=== PATIENT | female | born 1990 | race Hispanic/Latino ===

== ENCOUNTER 2017-10-31 19:12 | Emergency (ER) | payer OTHER, SELFPAY ==
[2017-10-31] MEDS ORDERED: Ketorolac Tromethamine 30 MG/ML VIAL ONE (21:01)
== END 2017-10-31 21:32 | disposition home or self-care (01) ==
LOC: ERS 19:12
DX: S16.1XXA Strain of muscle, fascia and tendon at neck level, initial encounter (principal); Q61.3 Polycystic kidney, unspecified; V43.52XA Car driver injured in collision with other type car in traffic accident, initial encounter
CPT/HCPCS: 96372; J1885

== ENCOUNTER 2019-01-16 10:07 | Outpatient (CLI) | payer OTHER ==
--- NOTE | 2019-01-16 10:59 | ULT ---
Renal sonogram HISTORY: Chronic renal disease. FINDINGS: The right kidney measures up to 12.9 cm length. Extensive widespread large cortical cysts. Largest is at the lateral cortex, measuring up to 2.7 x 2.5 cm cm greatest diameters. No hydronephrosis is reliably demonstrated. Several areas of echogenicity with subtle posterior twinkle artifact are favor ed to represent small calcifications. Not clear if they are associated with the cysts or collecting systems. Urinary bladder is incompletely distended. Left kidney measures up to 15.0 cm, also containing extensive multiple large cortical cysts, measurin g up to 6.0 x 4.8 cm the superior pole. No solid masses or hydronephrosis evident. IMPRESSION: Extensive large bilateral renal cysts. Similar to prior CT from 08/11/2013. No evidence of urinary tract obstruction. Small right renal calcifications likely related to the cysts. Less likely nonobstructing collecting s ystem calculi.
== END 2019-01-16 10:08 | disposition home or self-care (01) ==
LOC: BICULT 10:07
PROVIDERS: ATTEND Internal Medicine Nephrology
DX: N18.1 Chronic kidney disease, stage 1 (principal); N28.1 Cyst of kidney, acquired; N20.0 Calculus of kidney
CPT/HCPCS: 76770